=== PATIENT | male | born 1995 | race African-American/Black ===

== ENCOUNTER 2017-01-14 01:12 | Emergency (ER) | payer BC ==
[~2017-01-14] VITALS: Ht 185.4 cm; Wt 86.4 kg
[2017-01-14] MEDS ORDERED: VYVANSE50 MG PO (01:18)
[2017-01-14 01:20] VITALS: TEMP 98.9
[2017-01-14 03:20] VITALS: BP 118/75; PULSE 75
== END 2017-01-14 03:20 | disposition home or self-care (01) ==
LOC: COL.ER 01:12
DX: S51.811A Laceration without foreign body of right forearm, initial encounter (principal); S61.210A Laceration without foreign body of right index finger without damage to nail, initial encounter; S61.411A Laceration without foreign body of right hand, initial encounter; W01.10XA Fall on same level from slipping, tripping and stumbling with subsequent striking against unspecified object, initial encounter; Y92.009 Unspecified place in unspecified non-institutional (private) residence as the place of occurrence of the external cause